=== PATIENT | female | born 1990 | race Asian ===

== ENCOUNTER 2019-09-25 03:44 | Emergency (ER) | payer SELFPAY ==
[~2019-09-25] VITALS: Ht 157.5 cm; Wt 47.2 kg
--- NOTE | 2019-09-25 04:20 | NUR ---
BIBMOTHER FROM HOME. TO ER BED 10. AAOX 4. NO RESP DISTRESS. AMBULATORY. C/O ABDOINAL PAIN. ACCORDING TO PT, SHE WENT DRINKING AND STARTED TO HAVE VOMMITING. PT REPORTS THAT SHE WENT TO AN URGENT CARE YESTERDAY GOT ZOFRAN BUT NOT WORKING. PT IS NOTED DRY HEEVING UPON RECEIVING. AND C/O NAUSEA AND ABDOMINAL PAIN RATE 8/10 SHARP. MD WAS AT BEDSIDE FOR EVAL. ORDERS RECEIVED NOTED AND CARRIED OUT. IV LINE OBTAINED ON THE R HAND 20G. BLOOD DRAWN AND SENT GIVEN TO INDUSTRY OPERATIONS INVESTIGATOR AT BEDSIDE.
[2019-09-25] MEDS ORDERED: PROCHLORPERAZINE EDISYLATE 10 MG/2 ML VIAL ONE (04:26)
[2019-09-25] MEDS ORDERED: IV NS 0.9% 1,000 ML BAG IV ONE (04:30)
[2019-09-25] MEDS ORDERED: PROCHLORPERAZINE EDISYLATE 10 MG/2 ML VIAL IVP ONE (04:30)
[2019-09-25 04:46] LABS: BASOPHILS % (AUTO) 0.2 % (0.0-2.0); HEMATOCRIT 45 % (33-45); HEMOGLOBIN 14.6 g/dL (11.5-14.8); LYMPHOCYTES # (AUTO) 1.1 /CMM (0.8-4.8); LYMPHOCYTES % (AUTO) 8.3 % (20.0-44.0); MEAN CORPUSCULAR HGB CONC 33 g/dl (31.0-36.0); MEAN CORPUSCULAR VOLUME 96 fL (82-100); MONOCYTES # (AUTO) 0.9 /CMM (0.1-1.30); MONOCYTES % (AUTO) 6.9 % (2.0-12.0); NEUTROPHILS # (AUTO) 10.7 /CMM (1.8-8.9); NEUTROPHILS % (AUTO) 84.6 % (43.0-81.0); PLATELET COUNT (AUTO) 133 /CMM (150-450); RED BLOOD CELL COUNT(AUTO) 4.67 MIL/uL (4.0-5.2); WHITE BLOOD COUNT (AUTO) 12.7 K/uL (4.3-11.0)
[2019-09-25 04:53] LABS: CALCIUM, SERUM 9.4 mg/dL (8.5-10.1); POTASSIUM 4.2 mmol/L (3.5-5.1)
[2019-09-25 05:00] LABS: BILIRUBIN,DIRECT 0.2 mg/dL (0.0-0.2); BILIRUBIN,TOTAL 1.2 mg/dL (0.2-1.0)
[2019-09-25] MEDS ORDERED: IV NS 0.9% 1,000 ML IV PRN (05:30)
[2019-09-25 06:19] LABS: CALCIUM, SERUM 8.3 mg/dL (8.5-10.1); CREATININE 0.8 mg/dL (0.6-1.3); POTASSIUM 3.8 mmol/L (3.5-5.1)
[2019-09-25] MEDS ORDERED: ONDANSETRON HCL/PF 4 MG/2 ML VIAL ONE (06:51)
--- NOTE | 2019-09-25 06:56 | NUR ---
PT STILL FEEL A LIITLE NAUSEOUS BUT NOT THE SAME ADRIANNA. MADE AWARE. AND RECEIVED ORDERS FOR ZOFRAN 4MG IV X 1. NOTED AND CARRIED OUT
[2019-09-25] MEDS ORDERED: ONDANSETRON HCL/PF - ER 4 MG/2 ML VIAL IV ONE (07:00)
--- NOTE | 2019-09-25 07:18 | NUR ---
Patient discharged to home in stable condition. Written and verbal after care instructions given. Patient verbalizes understanding of instruction.IV removed. Catheter intact and site benign. Pressure and 4x4 applied to site. No bleeding noted. Pt ambulatory with a steady gait
[2019-09-25 07:19] VITALS: BP 114/71
== END 2019-09-25 07:19 | disposition home or self-care (01) ==
LOC: ER 03:47
DX: K52.9 Noninfective gastroenteritis and colitis, unspecified (principal); Z98.890 Other specified postprocedural states; Z88.2 Allergy status to sulfonamides
CPT/HCPCS: 36415; 80048 ×2; 80076; 83690; 84703; 85025; 96361; 96374; 99283; J0780; J7030 ×2; J2405

== ENCOUNTER 2019-09-26 02:47 | Emergency (ER) | payer SELFPAY ==
[~2019-09-26] VITALS: Ht 165.1 cm; Wt 50.8 kg
[2019-09-26] MEDS ORDERED: ONDANSETRON HCL/PF 4 MG/2 ML VIAL IVP ONE (03:00)
[2019-09-26] MEDS ORDERED: IV NS 0.9% 1,000 ML BAG IV ONE (03:00)
[2019-09-26] MEDS ORDERED: diphenhydrAMINE HCL 50 MG/ML VIAL IV ONE (03:00)
--- NOTE | 2019-09-26 03:00 | NUR ---
BIB MOM FOR C/O ABD PAIN, N/V X 2 DAYS. PT ALSO PRESENTED W/ L JAW TIGHTNESS. PT WAS SEEN AT [facility] ER YESTERDAY AND GIVEN COMPAZINE FOR N/V.
[2019-09-26] MEDS ORDERED: diphenhydrAMINE HCL 50 MG/ML VIAL ONE (03:02)
[2019-09-26] MEDS ORDERED: ONDANSETRON HCL/PF 4 MG/2 ML VIAL ONE (03:02)
[2019-09-26 03:15] LABS: BASOPHILS % (AUTO) 0.2 % (0.0-2.0); HEMATOCRIT 43 % (33-45); HEMOGLOBIN 14.7 g/dL (11.5-14.8); LYMPHOCYTES # (AUTO) 1.4 /CMM (0.8-4.8); LYMPHOCYTES % (AUTO) 10.6 % (20.0-44.0); MEAN CORPUSCULAR HGB CONC 34 g/dl (31.0-36.0); MEAN CORPUSCULAR VOLUME 91 fL (82-100); MONOCYTES % (AUTO) 7.6 % (2.0-12.0); NEUTROPHILS # (AUTO) 10.7 /CMM (1.8-8.9); NEUTROPHILS % (AUTO) 81.6 % (43.0-81.0); PLATELET COUNT (AUTO) 164 /CMM (150-450); RED BLOOD CELL COUNT(AUTO) 4.72 MIL/uL (4.0-5.2); WHITE BLOOD COUNT (AUTO) 13.1 K/uL (4.3-11.0)
[2019-09-26 03:24] LABS: CALCIUM, SERUM 9.1 mg/dL (8.5-10.1); CREATININE 0.9 mg/dL (0.6-1.3); POTASSIUM 3.2 mmol/L (3.5-5.1)
[2019-09-26 03:29] LABS: BILIRUBIN,DIRECT 0.3 mg/dL (0.0-0.2); BILIRUBIN,TOTAL 1.8 mg/dL (0.2-1.0); TOTAL PROTEIN, SERUM 7.7 g/dL (6.4-8.2)
--- NOTE | 2019-09-26 03:39 | NUR ---
Malina clay in [facility] - 09/26/19 at 0340 by JUAN LUIS PELLET PRESS OPERATOR AT THE BED SIDE FOR TROP DRAW
[2019-09-26] MEDS ORDERED: KETOROLAC TROMETHAMINE INJ 30 MG/ML VIAL ONE (03:54)
[2019-09-26] MEDS ORDERED: KETOROLAC TROMETHAMINE INJ 30 MG/ML VIAL IV ONE (04:00)
[2019-09-26] MEDS ORDERED: CODEINE/PROMETHAZINE HCL 5 ML UDC ONE (04:24)
[2019-09-26] MEDS ORDERED: PROMETHAZINE HCL 25 MG TABLET PO SCH (04:30)
[2019-09-26] MEDS ORDERED: CODEINE/PROMETHAZINE HCL 5 ML UDC PO ONE (04:30)
[2019-09-26 05:12] VITALS: BP 114/64
--- NOTE | 2019-09-26 05:12 | NUR ---
DC IV removed. Catheter intact and site benign. Pressure and 4x4 applied to site. No bleeding noted.Patient discharged to home in stable condition. Rx and Written and verbal after care instructions given. Patient verbalizes understanding of instruction.
== END 2019-09-26 05:13 | disposition home or self-care (01) ==
LOC: ER 02:48
DX: N83.201 Unspecified ovarian cyst, right side (principal); R10.84 Generalized abdominal pain; R11.2 Nausea with vomiting, unspecified; F10.10 Alcohol abuse, uncomplicated; Y90.9 Presence of alcohol in blood, level not specified; Z98.890 Other specified postprocedural states; Z88.2 Allergy status to sulfonamides
CPT/HCPCS: 36415; 74176; 80048; 80076; 83690; 85025; 96361; 96374; 96375; 99284; J1200; J1885; J2405; J7030; Q0169

== ENCOUNTER 2020-02-12 23:17 | Emergency (ER) | payer BC ==
[~2020-02-12] VITALS: Ht 157.5 cm; Wt 46.3 kg
[2020-02-12] MEDS ORDERED: FAMOTIDINE/PF INJ 20 MG/2 ML VIAL IV ONE (23:39)
[2020-02-12] MEDS ORDERED: ONDANSETRON HCL/PF 4 MG/2 ML VIAL ONE (23:39)
--- NOTE | 2020-02-12 23:42 | NUR ---
BLOOD DRAWN AND SENT TO LAB FOR TESTING.
[2020-02-12 23:45] LABS: APPEARANCE,URINE Cloudy (CLEAR); BILIRUBIN,URINE SMALL (NEGATIVE); BLOOD, URINE Negative Ery/uL (NEGATIVE); COLOR,URINE Yellow (YELLOW); KETONES,URINE 40 (NEGATIVE); LEUKOCYTE ESTERASE ,URINE Negative (NEGATIVE); NITRITE, URINE Negative (NEGATIVE); PH,URINE 6.5 (5.0-8.0); PROTEIN,URINE 30 mg/dl (NEGATIVE); UGLUCOSE Negative (NEGATIVE); UROBILINOGEN,URINE 0.2 EU/dL (0.2)
[2020-02-12 23:50] LABS: BASOPHILS % (AUTO) 0.1 % (0.0-2.0); HEMATOCRIT 46 % (33-45); HEMOGLOBIN 15.7 g/dL (11.5-14.8); LYMPHOCYTES # (AUTO) 1.3 /CMM (0.8-4.8); LYMPHOCYTES % (AUTO) 12.7 % (20.0-44.0); MEAN CORPUSCULAR HGB CONC 34 g/dl (31.0-36.0); MEAN CORPUSCULAR VOLUME 90 fL (82-100); MONOCYTES # (AUTO) 0.8 /CMM (0.1-1.30); NEUTROPHILS # (AUTO) 8.4 /CMM (1.8-8.9); NEUTROPHILS % (AUTO) 79.2 % (43.0-81.0); PLATELET COUNT (AUTO) 176 /CMM (150-450); RED BLOOD CELL COUNT(AUTO) 5.09 MIL/uL (4.0-5.2); WHITE BLOOD COUNT (AUTO) 10.5 K/uL (4.3-11.0)
[2020-02-12 23:56] LABS: CALCIUM, SERUM 9.6 mg/dL (8.5-10.1); POTASSIUM 3.6 mmol/L (3.5-5.1)
--- NOTE | 2020-02-12 23:57 | NUR ---
PATIENT CAME TO ER BED 9 C/O NAUSEA AND VOMITING. PATIENT STATES THAT SHE HAD VOMITING AND NASUEA FOR THE PAST 2 DAYS. PATIENT STATES THAT SHE HAD SARDINES AND FELT SICK AFTER COMSUMPTION. CURRENTLY NO NAUSEA. AAOX4. NO SOB. BREATHING EVENLY AND UNLABORED. CONNECTED TO MONITOR. URINE IS COLLECTED AND SENT TO THE LAB.
[2020-02-13] MEDS ORDERED: ONDANSETRON HCL/PF 4 MG/2 ML VIAL IVP ONE
[2020-02-13] MEDS ORDERED: FAMOTIDINE/PF INJ 20 MG/2 ML VIAL IV ONE
[2020-02-13] MEDS ORDERED: IV NS 0.9% 1,000 ML BAG IV ONE
[2020-02-13 00:02] LABS: ALBUMIN 4.1 g/dL (3.4-5.0); BILIRUBIN,DIRECT 0.1 mg/dL (0.0-0.2); BILIRUBIN,TOTAL 0.5 mg/dL (0.2-1.0); TOTAL PROTEIN, SERUM 8.1 g/dL (6.4-8.2)
[2020-02-13 00:34] LABS: BACTERIA,URINE Many /HPF (None Seen); RBC,URINE 0-2 /HPF (0-2); SQUAMOUS EPITHELIAL CELL,UR Many /HPF (None Seen); WBC,URINE 0-2 /HPF (0-3)
[2020-02-13] MEDS ORDERED: MORPHINE SULFATE INJ 4 MG/ML DISP.SYRIN ONE (00:44)
[2020-02-13] MEDS ORDERED: MORPHINE SULFATE INJ 2 MG/ML DISP.SYRIN IV ONE (01:00)
--- NOTE | 2020-02-13 02:52 | NUR ---
IV removed. Catheter intact and site benign. Pressure and 4x4 applied to site. No bleeding noted.
--- NOTE | 2020-02-13 03:09 | NUR ---
Patient discharged to home in stable condition. Written and verbal after care instructions given. Patient verbalizes understanding of instruction.
[2020-02-13 03:10] VITALS: BP 118/77
== END 2020-02-13 03:10 | disposition home or self-care (01) ==
LOC: ER 23:17
DX: R10.84 Generalized abdominal pain (principal); R11.2 Nausea with vomiting, unspecified; R19.7 Diarrhea, unspecified; Z98.890 Other specified postprocedural states; Z88.2 Allergy status to sulfonamides
CPT/HCPCS: 36415; 80048; 80076; 81001; 83690; 84703; 85025; 96361; 96374; 96375 ×2; 99285; J2270; J2405; J3490; J7030 ×2; 81000-TC; 87086-TC

== ENCOUNTER 2021-03-31 22:29 | Inpatient (IN) | payer BC ==
[~2021-03-31] VITALS: Ht 157.5 cm; Wt 44.5 kg
--- NOTE | 2021-03-31 23:40 | NUR ---
PATIENT CAME TO ER BED 6 C/O NAUSEA AND VOMITING SINCE EARLIER TODAY. PATIENT STATES THAT SHE HAD DRANK SOME WINE, AND VODKA ALL DAY UNTIL TONIGHT. AAOX4. PATIENT IS BREATHING EVENLY AND UNLABORED ON ROOM AIR. CONNECTED TO THE MONITOR.
[2021-04-01] MEDS ORDERED: FAMOTIDINE/PF INJ 20 MG/2 ML VIAL IV ONE ×2 (00:44→01:00)
[2021-04-01] MEDS ORDERED: ONDANSETRON HCL/PF 4 MG/2 ML VIAL ONE (00:44)
[2021-04-01] MEDS ORDERED: MORPHINE SULFATE INJ 2 MG/ML DISP.SYRIN ONE (00:44)
--- NOTE | 2021-04-01 00:58 | NUR ---
RACECAR DRIVER AT BEDSIDE FOR BLOOD DRAW.
[2021-04-01] MEDS ORDERED: MORPHINE SULFATE INJ 2 MG/ML DISP.SYRIN IV ONE (01:00)
[2021-04-01] MEDS ORDERED: ONDANSETRON HCL/PF 4 MG/2 ML VIAL IVP ONE (01:00)
[2021-04-01] MEDS ORDERED: IV NS 0.9% 1,000 ML BAG IV ONE (01:00)
[2021-04-01 01:09] LABS: BASOPHILS % (AUTO) 0.2 % (0.0-2.0); HEMATOCRIT 40 % (33-45); HEMOGLOBIN 13.5 g/dL (11.5-14.8); LYMPHOCYTES # (AUTO) 1.1 /CMM (0.8-4.8); LYMPHOCYTES % (AUTO) 7.6 % (20.0-44.0); MEAN CORPUSCULAR HGB CONC 33 g/dl (31.0-36.0); MEAN CORPUSCULAR VOLUME 92 fL (82-100); MONOCYTES # (AUTO) 0.4 /CMM (0.1-1.30); MONOCYTES % (AUTO) 2.3 % (2.0-12.0); NEUTROPHILS # (AUTO) 13.5 /CMM (1.8-8.9); NEUTROPHILS % (AUTO) 89.9 % (43.0-81.0); PLATELET COUNT (AUTO) 185 /CMM (150-450); RED BLOOD CELL COUNT(AUTO) 4.42 MIL/uL (4.0-5.2)
[2021-04-01 01:34] LABS: CARBON DIOXIDE 19 mmol/L (21-32); CHLORIDE 104 mmol/L (98-107); CREATININE 0.7 mg/dL (0.6-1.3); GLUCOSE 101 mg/dL (74-106); SODIUM SERUM 139 mmol/L (136-145); UREA NITROGEN, BLOOD 15 mg/dL (7-18)
[2021-04-01 01:40] LABS: ALANINE AMINOTRANSFERASE 21 U/L (12-78); ALBUMIN 4.1 g/dL (3.4-5.0); ALKALINE PHOSPHATASE 59 U/L (46-116); ASPARTATE AMINOTRANSFERASE 26 U/L (15-37); BILIRUBIN,DIRECT 0.2 mg/dL (0.0-0.2); BILIRUBIN,TOTAL 0.8 mg/dL (0.2-1.0); LIPASE 74 U/L (73-393); TOTAL PROTEIN, SERUM 7.6 g/dL (6.4-8.2)
--- NOTE | 2021-04-01 01:59 | NUR ---
LACTIC 3.7
[2021-04-01] MEDS ORDERED: METOCLOPRAMIDE HCL 10 MG/2 ML VIAL IV ONE (02:00)
[2021-04-01] MEDS ORDERED: IOHEXOL-300 100 ML VIAL IV ONE (02:07)
[2021-04-01] MEDS ORDERED: CT SWABBABLE VALVE TRANS SET 1 EA INFUS.SET MC ONE (02:07)
--- NOTE | 2021-04-01 02:10 | NUR ---
PT TO CT
--- NOTE | 2021-04-01 02:23 | NUR ---
BROUGHT BACK FROM CT
[2021-04-01] MEDS ORDERED: METOCLOPRAMIDE HCL 10 MG/2 ML VIAL ONE (02:52)
--- NOTE | 2021-04-01 05:23 | NUR ---
PATIENT IS ASLEEP. CHEST RISING AND FALLING EVENLY. PATIENT IS EASILY AROUSABLE THROUGH VERBAL STIMULI. CONNECTED TO THE HYDRAULIC JACK ADJUSTER. PATIENT'S BED IN THE LOWEST POSITION. CALL LIGHT IS WITHIN HAND'S REACH. PATIENT WILL BE MONITOR CLOSELY.
[2021-04-01] MEDS ORDERED: HALOPERIDOL LACTATE INJ 5 MG/ML VIAL ONE (06:06)
[2021-04-01] MEDS ORDERED: HALOPERIDOL LACTATE INJ 5 MG/ML VIAL IM ONE (06:30)
--- NOTE | 2021-04-01 07:30 | NUR ---
received a call fromt he lab regarding covid 19 result "negative".
--- NOTE | 2021-04-01 09:12 | NUR ---
PATIENT A/OX4, STILL C/O NAUSEA AND PAIN. CLARISSA SINGH MADE AWARE AND REQUESTED FOR ADMISSION ORDERS.
--- NOTE | 2021-04-01 10:22 | NUR ---
room 322-2
[2021-04-01] MEDS ORDERED: METOCLOPRAMIDE HCL 10 MG/2 ML VIAL IV PRN (10:30)
[2021-04-01] MEDS ORDERED: MAG HYDROX/AL HYDROX/SIMETH 30 ML UDC PO PRN (10:30)
--- NOTE | 2021-04-01 11:22 | NUR ---
report given to Ladarius HOGAN for lyla
[2021-04-01 11:30] VITALS: BP 152/84
--- NOTE | 2021-04-01 11:30 | NUR ---
Pt transported to unit [place] with EMT at bedside on stable condition.
--- NOTE | 2021-04-01 11:31 | NUR ---
wheeled patient via gurney accompanied by EMT in no distress, RN assigned at bedside to assume care.
--- NOTE | 2021-04-01 11:35 | NUR ---
NURSE TRANSITIONAL NOTE RECEIVED PT IN 322-2 [facility]IA [place]. PT IS AWAKE. A/O X3 AND IRISH SPEAKING. COMPLAINT OF PAIN IN ABDOMEN 8/10 AND NAUSEA PRESENT. IVP MEDS GIVEN PER PROTOCOL. NO EDEMA PRESENT. SKIN IS INTACT. IV PRESENT IN L AC 22G. SAFETY MEASURES IN PLACE. SIDE RAILS RAISED. BED LOWERED. CALL LIGHT WITHIN REACH. WILL CONTINUE TO MONITOR.
[2021-04-01] MEDS: ONDANSETRON HCL/PF 4 MG/2 ML VIAL IVP PRN ×2 (11:41→18:20)
[2021-04-01] MEDS: MORPHINE SULFATE INJ 2 MG/ML DISP.SYRIN IV PRN ×2 (11:41→22:16)
--- NOTE | 2021-04-01 11:50 | NUR ---
RN NOTE PT PAIN IN ABDOMEN 8/10 AND NAUSEA PRESENT. IVP ZOFRAN AND MORPHINE GIVEN. WILL CONTINUE TO MONITOR.
--- NOTE | 2021-04-01 14:00 | NUR ---
MS RN NOTES RECEIVED REPORT AT THIS TIME FROM DEMETRI RN, PT RESTING COMFORTABLY, EASY TO AROUSE. AOX4. NO SOB NOTED, NO C//O OF PAIN AT THIS TIME, NO S/S OF ANY APPARENT DISTRESS NOTED. SKIN INTACT. IV ACCESS NOTED IN LAC G#20, INTACT, PATENT AND FLUSHING WELL. ASPIRATION AND SAFETY PRECAUTIONS IN PLACE AND MAINTAINED AT ALL TIMES. BED IN LOWEST LOCKED POSITION, SIDE RAILS UPX2, TABLE AND CALL LIGHT WITHIN REACH. WILL CONTINUE WITH PLAN OF CARE
--- NOTE | 2021-04-01 14:01 | NUR ---
RN NOTE GAVE REPORT TO IMMACULATE FOR KARLA.
[2021-04-01] MEDS: IV NS 0.9% 1,000 ML IV PRN (15:03)
--- NOTE | 2021-04-01 15:22 | NUR ---
RECEIVED ORDERS AT THIS TIME TO ADVANCE PT'SDIET FROM NPO TO CLEAR LIQUIDS TOLERATED PER JOHNIE ROMO. ORDERS READ BACK AND CARRIED OUT, WILL CONTINUE TO MONITOR
[2021-04-01 16:00] VITALS: BP 116/56
--- NOTE | 2021-04-01 18:15 | NUR ---
SURAJ AMARO ([phone]),PT'S MOTHER CALLED AND WAS UPDATED ON PT'S STATUS PER PT REQUEST. WILL CONTINUE TO MONITOR
--- NOTE | 2021-04-01 18:20 | NUR ---
PT C/O OF NAUSEA AT THIS TIME. VS BP 116/56, HR 65, RR 17, T 97.9, SPO2 100% ON RA. PER PT REQUEST ZOFRAN 4MG IVP Q6H PRN FOR N/V ADMINISTERED AT THIS TIME PER ORDER. WILL CONTINUE TO MONITOR
--- NOTE | 2021-04-01 18:37 | NUR ---
CARTON MARKER MACHINE CLOSING NOTES PT AWAKE IN BED AT THIS TIME. PT REMAINED STABLE THROUGHOUT SHIFT. ALL CARE, NEEDS, MEDICATION AND TREATMENT ADMINISTERED ANTICIPATED PER ORDER. NAUSEA CONTROL ADMINISTERED PER ORDER. SAFETY PRECAUTIONS IN PLACE AND MAINTAINED AT ALL TIMES. BED IN LOWEST LOCKED POSITION, HOB ELEVATED, SIDE RAILS UP X 2. CALL LIGHT AND TABLE WITHIN REACH. WILL ENDORSE TO OIL WELL GUN PERFORATOR OPERATOR NURSE FOR KARLA
--- NOTE | 2021-04-01 19:38 | NUR ---
POSTMASTER NOTES PT ASLEEP IN BED AT THIS TIME. NO RESPIRATORY DISTRESS OR PAIN NOTED AT THIS TIME. ALL NURSING NEEDS MET. SAFETY PRECAUTIONS IN PLACE AND MAINTAINED AT ALL TIMES. BED IN LOWEST LOCKED POSITION, HOB ELEVATED, SIDE RAILS UP X 2. CALL LIGHT AND TABLE WITHIN REACH. WILL CONTINUE TO MONITOR.
[2021-04-01 20:00] VITALS: BP_SYST 143; BP_SYST 150; BP_DIAS 57; BP_DIAS 88
[2021-04-02] MEDS: IV NS 0.9% 1,000 ML IV PRN (04:33)
[2021-04-02] MEDS: ONDANSETRON HCL/PF 4 MG/2 ML VIAL IVP PRN ×2 (05:19→08:51)
[2021-04-02] MEDS: LORAZEPAM INJ 2 MG/ML VIAL IV PRN ×3 (05:26→19:44)
[2021-04-02] MEDS ORDERED: LORAZEPAM INJ 2 MG/ML VIAL IV PRN (05:30)
[2021-04-02 06:44] LABS: BASOPHILS # (AUTO) 0.1 /CMM (0.0-0.2); BASOPHILS % (AUTO) 0.5 % (0.0-2.0); EOSINOPHILS % (AUTO) 0.1 % (0.0-6.0); HEMATOCRIT 39 % (33-45); HEMOGLOBIN 13.1 g/dL (11.5-14.8); LYMPHOCYTES # (AUTO) 2.5 /CMM (0.8-4.8); LYMPHOCYTES % (AUTO) 23.2 % (20.0-44.0); MEAN CORPUSCULAR HGB CONC 34 g/dl (31.0-36.0); MEAN CORPUSCULAR VOLUME 92 fL (82-100); MONOCYTES # (AUTO) 1.3 /CMM (0.1-1.30); MONOCYTES % (AUTO) 12.5 % (2.0-12.0); NEUTROPHILS # (AUTO) 6.7 /CMM (1.8-8.9); NEUTROPHILS % (AUTO) 63.7 % (43.0-81.0); PLATELET COUNT (AUTO) 171 /CMM (150-450); RED BLOOD CELL COUNT(AUTO) 4.25 MIL/uL (4.0-5.2); WHITE BLOOD COUNT (AUTO) 10.6 K/uL (4.3-11.0)
--- NOTE | 2021-04-02 06:53 | NUR ---
MS RN NOTES PT ASLEEP AT THIS TIME. NO RESPIRATORY DISTRESS NOTED NO PAIN OR DISCOMFORT NOTED OR REPORTED AT THIS TIME. PT ON ROOM AIR TOLERATING WELL. ALL NURSING NEEDS. ALL DUE MEDS GIVEN AND TOLERATED WELL. PT HAS NS RUINING AT 75 ML//HR. PT EXPERIENCED NAUSEA DURING VEHICLE WASHER ATIVAN GIVEN PT NO LONGER EXPERIENCING NAUSEA WILL ENDORSE TO DAY SHIFT NURSE. ALL SAFETY PRECAUTIONS FOLLOWED. CALL LIGHT WITHIN REACH. WILL ENDORSE CARE TO DAY SHIFT NURSE.
[2021-04-02 07:30] LABS: CALCIUM, SERUM 8.3 mg/dL (8.5-10.1); CREATININE 0.8 mg/dL (0.6-1.3); MAGNESIUM 1.9 mg/dL (1.8-2.4); POTASSIUM 3.8 mmol/L (3.5-5.1)
[2021-04-02 08:00] VITALS: BP 124/82
--- NOTE | 2021-04-02 08:00 | NUR ---
RN OPENING NOTE A/O X3 AND COOK ISLANDER SPEAKING. NO COMPLAINT OF PAIN. NAUSEA PRESENT. IVP MEDS GIVEN PER PROTOCOL. CURRENTLY ON RA WITH NO SOB OR RESPIRATORY DISTRESS PRESENT. NO EDEMA PRESENT. SKIN IS INTACT. PT IS SELF AMBULATORY WITH BATHROOM PRIVILEGES. IV PRESENT IN L AC 22G. SAFETY MEASURES IN PLACE. SIDE RAILS RAISED. BED LOWERED. CALL LIGHT WITHIN REACH. WILL CONTINUE TO MONITOR.
[2021-04-02] MEDS: PANTOPRAZOLE 40 MG VIAL IV SCH (08:51)
[2021-04-02 16:00] VITALS: BP 142/83
--- NOTE | 2021-04-02 18:11 | NUR ---
RN CLOSING NOTE PT AWAKE IN BED AND RESTING. A/O X3 AND TAIWANESE SPEAKING. NO COMPLAINT OF PAIN. NO NAUSEA PRESENT. CURRENTLY ON RA WITH NO SOB OR RESPIRATORY DISTRESS PRESENT. NO EDEMA PRESENT. SKIN IS INTACT. PT IS SELF AMBULATORY WITH BATHROOM PRIVILEGES. IV PRESENT IN L AC 22G. SAFETY MEASURES IN PLACE. SIDE RAILS RAISED. BED LOWERED. CALL LIGHT WITHIN REACH. REPORT TO BE GIVEN TO NIGHT NURSE FOR KARLA.
--- NOTE | 2021-04-02 19:36 | NUR ---
MS RN OPENING PATIENT IN BED. A/OX4. NO C/O PAIN AT THE MOMENT. NO S/S OF DISTRESS. ASKING FOR ATIVAN. SAFETY IN PLACE: BED IN LOWEST, LOCKED POSITION; CALL LIGHT WITHIN REACH. WILL CONTINUE TO MONITOR.
--- NOTE | 2021-04-02 19:40 | NUR ---
MS RN NOTE PATIENT ASKED FOR ATIVAN WHEN WE WERE DOING KARLA REPORT. REPORTING IT HELPS WITH HER LOCKED JAW. GIVEN ATIVAN O.5 ML. WILL CONTINUE TO MONITOR.
[2021-04-02 20:00] VITALS: BP 109/72
[2021-04-02 20:07] VITALS: BP 109/72
--- NOTE | 2021-04-02 20:50 | NUR ---
MS RN NOTES PATIENT C/O NAUSEA AND 8/10 ABDOMINAL PAIN. GIVEN REGLAN AND MORPHINE PRN.
[2021-04-02] MEDS: MORPHINE SULFATE INJ 2 MG/ML DISP.SYRIN IV PRN (20:51)
[2021-04-03 00:15] VITALS: BP 109/72
[2021-04-03] MEDS: LORAZEPAM INJ 2 MG/ML VIAL IV PRN ×2 (02:17→09:41)
--- NOTE | 2021-04-03 02:34 | NUR ---
MS RN NOTES PATIENT ASKED FOR ATIVAN. FEELING NAUSEOUS. GIVEN ATIVAN 0.5 ML PRN. ALSO, PATIENT C/O PAIN ON THE IV SITE. DC'd LEFT AC IV LINE AND INSERTED A NEW ONE ON THE R. FA #[id number]. WILL CONTINUE TO MONITOR.
[2021-04-03 06:02] LABS: BASOPHILS # (AUTO) 0.1 /CMM (0.0-0.2); BASOPHILS % (AUTO) 0.7 % (0.0-2.0); EOSINOPHILS % (AUTO) 0.3 % (0.0-6.0); HEMATOCRIT 38 % (33-45); HEMOGLOBIN 12.5 g/dL (11.5-14.8); LYMPHOCYTES # (AUTO) 2.6 /CMM (0.8-4.8); MEAN CORPUSCULAR HGB CONC 33 g/dl (31.0-36.0); MEAN CORPUSCULAR VOLUME 92 fL (82-100); MONOCYTES # (AUTO) 0.9 /CMM (0.1-1.30); MONOCYTES % (AUTO) 12.1 % (2.0-12.0); NEUTROPHILS # (AUTO) 3.8 /CMM (1.8-8.9); NEUTROPHILS % (AUTO) 51.9 % (43.0-81.0); PLATELET COUNT (AUTO) 146 /CMM (150-450); RED BLOOD CELL COUNT(AUTO) 4.09 MIL/uL (4.0-5.2); WHITE BLOOD COUNT (AUTO) 7.3 K/uL (4.3-11.0)
[2021-04-03 06:09] LABS: CALCIUM, SERUM 8.3 mg/dL (8.5-10.1); CREATININE 0.8 mg/dL (0.6-1.3); MAGNESIUM 1.9 mg/dL (1.8-2.4); PHOSPHORUS 2.1 mg/dL (2.5-4.9); POTASSIUM 3.4 mmol/L (3.5-5.1)
--- NOTE | 2021-04-03 06:46 | NUR ---
MS RN CLOSING PATIENT IN BED. A/OX4. NO S/S OF DISTRESS. PAIN AND NAUSEA MANAGED WITH MEDICATIONS. PATIENT ABLE TO MAKE NEEDS KNOWN. ALL NEEDS ATTENDED. SAFETY KEPT IN PLACE THE WHOLE SHIFT: BED IN LOWEST, LOCKED POSITION. CALL LIGHT WITHIN REACH. WILL ENDORSE CARE TO MORNING RN.
--- NOTE | 2021-04-03 07:30 | NUR ---
MS RN OPENING NOTES ALERT AND ORIENTED X4. NO COMPLAINT OF PAIN. NO SIGNS OR SYMPTOMS OF DISTRESS NOTED. MEDICATIONS GIVEN ORDERED CURRENTLY ON RA. NO EDEMA PRESENT. SKIN IS INTACT. PT IS SELF AMBULATORY WITH BATHROOM PRIVILEGES. IV PRESENT IN L AC 22G. SAFETY MEASURES IN PLACE. SIDE RAILS RAISED. BED LOWERED. CALL LIGHT WITHIN REACH. WILL CONTINUE TO MONITOR.
[2021-04-03] MEDS: PANTOPRAZOLE 40 MG VIAL IV SCH (08:56)
[2021-04-03] MEDS ORDERED: POTASSIUM CHLORIDE 20 MEQ POWDER PACKET PO SCH (10:00)
[2021-04-03] MEDS ORDERED: PANT40TA2 PO (10:46)
[2021-04-03] MEDS ORDERED: K PHOS NEUTRAL 250 MG TABLET PO ONE (11:00)
--- NOTE | 2021-04-03 13:43 | NUR ---
SUPERVISOR SPINNING NOTE RECEIVED DISCHARGE ORDER. PATIENT IS ALERT AND ORIENTED X 4. PATIENT IS ON ROOM AIR, BREATHING IS EVEN AND UNLABORED, NO SIGNS OF DISTRESS OR SHORTNESS OF BREATH NOTED. NO COMPLAINTS OF PAIN AT THIS TIME. PATIENT ABLE TO MAKE NEEDS KNOWN. PATIENT WAS GIVEN DISCHARGE INSTRUCTIONS BOTH VERBALLY AND WRITTEN. BELONGINGS AND CHECKLIST WERE REVIEWED WITH PATIENT. ID BAND AND IV ACCESS WAS REMOVED. SKIN IS INTACT. PATIENT WAS PICKED UP BY FAMILY MEMBER IN PRIVATE CAR IN STABLE CONDITION.
== END 2021-04-03 13:40 | disposition home or self-care (01) | DRG 392 ==
LOC: ER 22:32 → TRANSITION 04-01 09:23 → MED 04-01 10:43
PROVIDERS: ADMIT Registered Nurse; ATTEND Nurse Practitioner Acute Care
DX: K29.20 Alcoholic gastritis without bleeding (principal); E87.2 Acidosis; F10.188 Alcohol abuse with other alcohol-induced disorder; E44.1 Mild protein-calorie malnutrition; Z68.1 Body mass index [BMI] 19.9 or less, adult; K21.00 Gastro-esophageal reflux disease with esophagitis, without bleeding; Y90.9 Presence of alcohol in blood, level not specified; E86.0 Dehydration; E86.1 Hypovolemia; Z20.822 Contact with and (suspected) exposure to COVID-19; Z98.82 Breast implant status
CPT/HCPCS: 36415; 76705-TC; 80048-TC; 80076-TC; 83605-TC; 83690-TC; 83735-TC; 84100-TC; 84702-TC; 85025-TC; 87081-TC; C9113; C9803; G0378; J1630; J2060; J2270; J2405; J2765; J3490; J7030; Q9967

== ENCOUNTER 2021-07-02 11:11 | Emergency (ER) | payer BC ==
[~2021-07-02] VITALS: Ht 157.5 cm; Wt 46.3 kg
[~2021-07-02 11:11] MED LIST: PANT40TA2 PO
--- NOTE | 2021-07-02 11:15 | NUR ---
AAOX3, CAME TO ER C/O ABDOMINAL PAIN, NAUSEA AND VOMITING X 2 DAYS. RR IS EVEN AND UNLABORED WITH NAD NOTED. SKIN IS WARM AND NON DIAPHORETIC. AWAITING MD FOR EVAL.
--- NOTE | 2021-07-02 11:35 | NUR ---
DR HAYNES AT FOR EVAL.
[2021-07-02] MEDS ORDERED: ONDANSETRON HCL/PF 4 MG/2 ML VIAL ONE ×2 (11:38→12:20)
[2021-07-02 11:54] LABS: BASOPHILS % (AUTO) 0.3 % (0.0-2.0); HEMATOCRIT 44 % (33-45); HEMOGLOBIN 15.3 g/dL (11.5-14.8); LYMPHOCYTES # (AUTO) 1.1 K/uL (0.8-4.8); LYMPHOCYTES % (AUTO) 9.7 % (20.0-44.0); MEAN CORPUSCULAR HGB CONC 35 g/dl (31.0-36.0); MEAN CORPUSCULAR VOLUME 93 fL (82-100); MONOCYTES # (AUTO) 0.9 K/uL (0.1-1.30); MONOCYTES % (AUTO) 8.5 % (2.0-12.0); NEUTROPHILS # (AUTO) 8.9 K/uL (1.8-8.9); NEUTROPHILS % (AUTO) 81.5 % (43.0-81.0); PLATELET COUNT (AUTO) 201 K/uL (150-450)
[2021-07-02] MEDS ORDERED: IV NS 0.9% 1,000 ML BAG IV ONE (12:00)
[2021-07-02] MEDS ORDERED: ONDANSETRON HCL/PF 4 MG/2 ML VIAL IVP ONE (12:00)
--- NOTE | 2021-07-02 12:09 | NUR ---
URINE COLLECTED AND SENT TO LAB
[2021-07-02 12:19] LABS: CALCIUM, SERUM 9.3 mg/dL (8.5-10.1); CREATININE 0.9 mg/dL (0.6-1.3)
[2021-07-02 12:25] LABS: ALBUMIN 4.5 g/dL (3.4-5.0); BILIRUBIN,DIRECT 0.4 mg/dL (0.0-0.2); BILIRUBIN,TOTAL 1.9 mg/dL (0.2-1.0); TOTAL PROTEIN, SERUM 8.6 g/dL (6.4-8.2)
[2021-07-02] MEDS ORDERED: ONDANSETRON HCL/PF 4 MG/2 ML VIAL IV ONE (12:30)
--- NOTE | 2021-07-02 12:38 | NUR ---
PT VERBALIZED EPIGASTRIC PAIN SHARP BURNING. MD MADE AWARE. AWAITING ORDERS
[2021-07-02] MEDS ORDERED: MORPHINE SULFATE INJ 2 MG/ML DISP.SYRIN ONE (12:39)
--- NOTE | 2021-07-02 12:55 | NUR ---
US AT BEDSIDE
[2021-07-02] MEDS ORDERED: MORPHINE SULFATE INJ 2 MG/ML DISP.SYRIN IV ONE (13:00)
[2021-07-02] MEDS ORDERED: ONDA4TAB5 PO (13:08)
[2021-07-02 13:17] VITALS: BP 124/71
[2021-07-02 14:00] LABS: BILIRUBIN,URINE SMALL (NEGATIVE); COLOR,URINE YELLOW (YELLOW); LEUKOCYTE ESTERASE ,URINE NEGATIVE (NEGATIVE); NITRITE, URINE NEGATIVE (NEGATIVE); PH,URINE 6.5 (5.0-8.0); PROTEIN,URINE 30 mg/dl (NEGATIVE); UGLUCOSE NEGATIVE (NEGATIVE); UROBILINOGEN,URINE 0.2 EU/dL (0.2)
[2021-07-02 14:05] LABS: RBC,URINE 0-2 /HPF (0-2); WBC,URINE 0-2 /HPF (0-3)
[2021-07-02 14:06] LABS: BACTERIA,URINE Moderate /HPF (None Seen); SQUAMOUS EPITHELIAL CELL,UR Many /HPF (None Seen)
== END 2021-07-02 13:18 | disposition home or self-care (01) ==
LOC: ER 11:11
DX: R10.84 Generalized abdominal pain (principal); R11.10 Vomiting, unspecified; Z98.890 Other specified postprocedural states; Z88.2 Allergy status to sulfonamides; Z79.899 Other long term (current) drug therapy
CPT/HCPCS: 36415; 76700; 80048; 80076; 81001; 83690; 84703; 85025; 87086; 96361; 96374; 96375; 96376; 99284; J2270; J2405 ×2; J7030

== ENCOUNTER 2021-07-03 04:12 | Emergency (ER) | payer BC ==
[~2021-07-03] VITALS: Ht 157.5 cm; Wt 46.3 kg
[~2021-07-03 04:12] MED LIST changes: +ONDA4TAB5 PO
--- NOTE | 2021-07-03 04:25 | NUR ---
PT BIBRA 99 FROM HOME FOR C/O ABDOMINAL PAIN, NAUSEA AND VOMITING. WAS SEEN AT [facility] ER YESTERDAY. PT ALERT AND ORIENTED X4. AMBULATORY WITH NON LABORED BREATHING.
[2021-07-03] MEDS ORDERED: ONDANSETRON HCL/PF 4 MG/2 ML VIAL ONE ×2 (04:30→05:20)
[2021-07-03] MEDS ORDERED: FAMOTIDINE/PF INJ 20 MG/2 ML VIAL IV ONE ×2 (04:30→04:44)
[2021-07-03] MEDS ORDERED: IV NS 0.9% 1,000 ML BAG IV ONE (04:30)
[2021-07-03] MEDS ORDERED: ONDANSETRON HCL/PF 4 MG/2 ML VIAL IVP ONE (04:30)
--- NOTE | 2021-07-03 04:30 | NUR ---
AUTOMOTIVE PARTS SALESPERSON @ BEDSIDE.
[2021-07-03 04:47] LABS: BASOPHILS # (AUTO) 0.2 K/uL (0.0-0.2); BASOPHILS % (AUTO) 1.5 % (0.0-2.0); EOSINOPHILS % (AUTO) 0.4 % (0.0-6.0); HEMATOCRIT 45 % (33-45); HEMOGLOBIN 15.6 g/dL (11.5-14.8); LYMPHOCYTES # (AUTO) 0.9 K/uL (0.8-4.8); LYMPHOCYTES % (AUTO) 8.3 % (20.0-44.0); MEAN CORPUSCULAR HGB CONC 35 g/dl (31.0-36.0); MEAN CORPUSCULAR VOLUME 91 fL (82-100); MONOCYTES # (AUTO) 0.6 K/uL (0.1-1.30); MONOCYTES % (AUTO) 5.5 % (2.0-12.0); NEUTROPHILS # (AUTO) 8.8 K/uL (1.8-8.9); NEUTROPHILS % (AUTO) 84.3 % (43.0-81.0); PLATELET COUNT (AUTO) 186 K/uL (150-450); RED BLOOD CELL COUNT(AUTO) 4.96 MIL/uL (4.0-5.2); WHITE BLOOD COUNT (AUTO) 10.5 K/uL (4.3-11.0)
[2021-07-03] MEDS ORDERED: MORPHINE SULFATE INJ 2 MG/ML DISP.SYRIN ONE (04:50)
[2021-07-03 04:57] LABS: CALCIUM, SERUM 9.5 mg/dL (8.5-10.1); CREATININE 0.9 mg/dL (0.6-1.3); POTASSIUM 3.7 mmol/L (3.5-5.1)
[2021-07-03] MEDS ORDERED: MORPHINE SULFATE INJ 2 MG/ML DISP.SYRIN IM ONE (05:00)
[2021-07-03] MEDS ORDERED: KETOROLAC TROMETHAMINE INJ 30 MG/ML VIAL IV ONE (05:00)
[2021-07-03 05:03] LABS: ALBUMIN 4.4 g/dL (3.4-5.0); BILIRUBIN,DIRECT 0.3 mg/dL (0.0-0.2); BILIRUBIN,TOTAL 1.8 mg/dL (0.2-1.0); TOTAL PROTEIN, SERUM 8.4 g/dL (6.4-8.2)
[2021-07-03] MEDS ORDERED: ONDANSETRON HCL/PF - ER 4 MG/2 ML VIAL IV ONE (05:30)
--- NOTE | 2021-07-03 05:46 | NUR ---
Patient discharged to home in stable condition. Written and verbal after care instructions given. Patient verbalizes understanding of instruction.
[2021-07-03 05:47] VITALS: BP 120/70
[2021-07-03 05:54] LABS: LYMPHOCYTES % (MANUAL) 9 % (16-48); MONOCYTES % (MANUAL) 2 % (0-11.0); NEUTROPHILS % (MANUAL) 89 (42-76)
== END 2021-07-03 05:47 | disposition home or self-care (01) ==
LOC: ER 04:13
DX: R11.15 Cyclical vomiting syndrome unrelated to migraine (principal); F10.10 Alcohol abuse, uncomplicated; Y90.0 Blood alcohol level of less than 20 mg/100 ml; Z79.899 Other long term (current) drug therapy; Z98.890 Other specified postprocedural states; Z88.2 Allergy status to sulfonamides
CPT/HCPCS: 36415; 80048; 80076; 80320; 83690; 85007; 85025; 96361; 96372; 96374; 96375; 96376; 99284; J2270; J2405 ×3; J3490; J7030; G0480

== ENCOUNTER 2021-10-07 06:35 | Emergency (ER) | payer BC ==
[~2021-10-07] VITALS: Ht 157.5 cm; Wt 44.0 kg
[2021-10-07] MEDS ORDERED: ONDANSETRON HCL/PF 4 MG/2 ML VIAL ONE (06:52)
--- NOTE | 2021-10-07 06:57 | NUR ---
BIBS FOR C/O N/V AND ABD PAIN X 3 DAYS. PATIENT ALERT AND ORIENTED X3. AMBULATORY WITH NON LABORED BREATHING. PLACED IN BED 03 ON A MONITOR AND COMFORTABLE.
--- NOTE | 2021-10-07 06:57 | NUR ---
BLOOD COLLECTED AND SENT TO LAB
[2021-10-07] MEDS ORDERED: IV NS 0.9% 1,000 ML BAG IV ONE (07:00)
[2021-10-07] MEDS ORDERED: ONDANSETRON HCL/PF 4 MG/2 ML VIAL IVP ONE (07:00)
[2021-10-07] MEDS ORDERED: MORPHINE SULFATE INJ 2 MG/ML DISP.SYRIN ONE (07:13)
[2021-10-07] MEDS ORDERED: MORPHINE SULFATE INJ 2 MG/ML DISP.SYRIN IV ONE (07:30)
[2021-10-07 07:48] LABS: BASOPHILS % (AUTO) 0.2 % (0.0-2.0); HEMATOCRIT 44 % (33-45); HEMOGLOBIN 15.4 g/dL (11.5-14.8); LYMPHOCYTES # (AUTO) 1.4 K/uL (0.8-4.8); MEAN CORPUSCULAR HGB CONC 35 g/dl (31.0-36.0); MEAN CORPUSCULAR VOLUME 91 fL (82-100); NEUTROPHILS # (AUTO) 6.3 K/uL (1.8-8.9); NEUTROPHILS % (AUTO) 72.8 % (43.0-81.0); PLATELET COUNT (AUTO) 199 K/uL (150-450); RED BLOOD CELL COUNT(AUTO) 4.87 MIL/uL (4.0-5.2); WHITE BLOOD COUNT (AUTO) 8.7 K/uL (4.3-11.0)
--- NOTE | 2021-10-07 07:53 | NUR ---
THE PATIENT IS RECEIVED IN ER BED #3. ALERT AND ORIENTED X4. RESPIRATION REGULAR AND UNLABORED. WILL CONTINUE TO MONITOR THE PATIENT.
[2021-10-07 08:32] LABS: CREATININE 0.8 mg/dL (0.6-1.3); POTASSIUM 3.6 mmol/L (3.5-5.1)
[2021-10-07 08:38] LABS: ALBUMIN 4.2 g/dL (3.4-5.0); BILIRUBIN,DIRECT 0.4 mg/dL (0.0-0.2); BILIRUBIN,TOTAL 1.8 mg/dL (0.2-1.0); TOTAL PROTEIN, SERUM 8.1 g/dL (6.4-8.2)
[2021-10-07] MEDS ORDERED: ONDA4TAB5 PO (08:47)
[2021-10-07 08:52] LABS: BILIRUBIN,URINE SMALL (NEGATIVE); COLOR,URINE YELLOW (YELLOW); LEUKOCYTE ESTERASE ,URINE NEGATIVE (NEGATIVE); NITRITE, URINE NEGATIVE (NEGATIVE); PROTEIN,URINE TRACE mg/dl (NEGATIVE); UGLUCOSE NEGATIVE (NEGATIVE)
--- NOTE | 2021-10-07 09:18 | NUR ---
IV removed. Catheter intact and site benign. Pressure and 4x4 applied to site. No bleeding noted.Patient discharged to home in stable condition. Written and verbal after care instructions given. Patient verbalizes understanding of instruction.
[2021-10-07 09:19] VITALS: BP 134/63
[2021-10-07 09:54] LABS: BACTERIA,URINE Moderate /HPF (None Seen); RBC,URINE 0-2 /HPF (0-2); WBC,URINE 0-2 /HPF (0-3)
[2021-10-07 09:55] LABS: SQUAMOUS EPITHELIAL CELL,UR Few /HPF (None Seen)
== END 2021-10-07 09:19 | disposition home or self-care (01) ==
LOC: ER 06:37
DX: R11.15 Cyclical vomiting syndrome unrelated to migraine (principal); R10.9 Unspecified abdominal pain; Z98.890 Other specified postprocedural states; Z88.2 Allergy status to sulfonamides; Z79.899 Other long term (current) drug therapy
CPT/HCPCS: 36415; 80048; 80076; 81001; 83690; 84703; 85025; 87086; 96361; 96374; 96375; 99284; J2270; J2405; J7030

== ENCOUNTER 2022-12-07 07:41 | Emergency (ER) | payer BC, OTHER ==
[~2022-12-07] VITALS: Ht 157.5 cm; Wt 46.3 kg
[2022-12-07] MEDS ORDERED: ONDANSETRON 4 MG TAB.RAPDIS ONE (08:29)
[2022-12-07] MEDS ORDERED: ONDANSETRON 4 MG TAB.RAPDIS SL ONE (08:30)
[2022-12-07] MEDS ORDERED: LIDOCAINE VISCOUS 2% UD 15 ML UDC MM ONE (08:30)
[2022-12-07] MEDS ORDERED: MORPHINE SULFATE INJ 2 MG/ML DISP.SYRIN IV ONE (08:30)
[2022-12-07] MEDS ORDERED: ONDANSETRON HCL/PF 4 MG/2 ML VIAL IVP ONE (08:30)
[2022-12-07] MEDS ORDERED: MAG HYDROX/AL HYDROX/SIMETH 30 ML UDC PO ONE (08:30)
[2022-12-07] MEDS ORDERED: IV NS 0.9% 1,000 ML BAG IV ONE (08:30)
[2022-12-07] MEDS ORDERED: PANTOPRAZOLE 40 MG VIAL IV ONE (08:30)
[2022-12-07] MEDS ORDERED: PANTOPRAZOLE 40 MG VIAL ONE (08:31)
[2022-12-07] MEDS ORDERED: MAG HYDROX/AL HYDROX/SIMETH 30 ML UDC ONE (08:31)
[2022-12-07] MEDS ORDERED: LIDOCAINE VISCOUS 2% UD 15 ML UDC ONE (08:31)
[2022-12-07] MEDS ORDERED: ONDANSETRON HCL/PF 4 MG/2 ML VIAL ONE (08:31)
[2022-12-07] MEDS ORDERED: MORPHINE SULFATE INJ 2 MG/ML DISP.SYRIN ONE (08:31)
--- NOTE | 2022-12-07 08:40 | NUR ---
PHLEB AT BEDSIDE FOR BLOOD COLLECTION
--- NOTE | 2022-12-07 08:40 | NUR ---
PT UNABLE TO PROVIDE URINE AT THIS TIME; SPECIMEN CUP GIVEN TO PT
--- NOTE | 2022-12-07 08:44 | NUR ---
RIGHT AC 20G ESTABLISH, PATENT. LAB DRAWN, IV MEDS GIVEN, 1L NS BOLUS INITIATED.
[2022-12-07 08:48] LABS: BASOPHILS % (AUTO) 0.1 % (0.0-2.0); HEMATOCRIT 49 % (33-45); LYMPHOCYTES # (AUTO) 1.4 K/uL (0.8-4.8); LYMPHOCYTES % (AUTO) 9.1 % (20.0-44.0); MEAN CORPUSCULAR HGB CONC 33 g/dl (31.0-36.0); MEAN CORPUSCULAR VOLUME 91 fL (82-100); MONOCYTES # (AUTO) 1.6 K/uL (0.1-1.30); MONOCYTES % (AUTO) 10.4 % (2.0-12.0); NEUTROPHILS # (AUTO) 12.5 K/uL (1.8-8.9); NEUTROPHILS % (AUTO) 80.4 % (43.0-81.0); PLATELET COUNT (AUTO) 227 K/uL (150-450); RED BLOOD CELL COUNT(AUTO) 5.31 MIL/uL (4.0-5.2); WHITE BLOOD COUNT (AUTO) 15.6 K/uL (4.3-11.0)
[2022-12-07 08:55] LABS: CALCIUM, SERUM 10.7 mg/dL (8.5-10.1); CREATININE 1.5 mg/dL (0.6-1.3)
[2022-12-07 09:20] LABS: ALBUMIN 5.1 g/dL (3.4-5.0); BILIRUBIN,DIRECT 0.3 mg/dL (0.0-0.2); BILIRUBIN,TOTAL 2.2 mg/dL (0.2-1.0); TOTAL PROTEIN, SERUM 10.1 g/dL (6.4-8.2)
[2022-12-07] MEDS ORDERED: IV NS 0.9% 1,000 ML IV ONE (09:30)
--- NOTE | 2022-12-07 09:33 | NUR ---
PT RESTING W/ EYES CLOSED, ABLE TO BE AWAKENED. NO COMPLAINT OF NAUSEA AT THIS TIME.
[2022-12-07 10:57] LABS: CALCIUM, SERUM 10.4 mg/dL (8.5-10.1); CREATININE 1.5 mg/dL (0.6-1.3); POTASSIUM 4.1 mmol/L (3.5-5.1)
[2022-12-07] MEDS ORDERED: ONDA4TAB11 PO (11:37)
[2022-12-07 11:44] VITALS: BP 132/81
== END 2022-12-07 11:45 | disposition home or self-care (01) ==
LOC: ER 07:45
DX: R10.84 Generalized abdominal pain (principal); R11.2 Nausea with vomiting, unspecified; Z88.2 Allergy status to sulfonamides; Z60.2 Problems related to living alone; Z79.899 Other long term (current) drug therapy
CPT/HCPCS: 99284; 96374; 96361; 96375; 85025; 80048 ×2; 83690; 80076; 84703; 36415; 84702; J2405; J7030 ×2; C9113; Q0162; J2270

== ENCOUNTER 2023-11-17 01:36 | Emergency (ER) | payer SELFPAY ==
[~2023-11-17] VITALS: Ht 157.5 cm; Wt 44.5 kg
[~2023-11-17 01:36] MED LIST changes: +ONDA4TAB11 PO
[2023-11-17] MEDS ORDERED: KETOROLAC TROMETHAMINE 15 MG/ML VIAL ONE (02:26)
[2023-11-17] MEDS ORDERED: FAMOTIDINE/PF INJ 20 MG/2 ML VIAL IV ONE ×2 (02:26→02:30)
[2023-11-17] MEDS ORDERED: ONDANSETRON HCL/PF 4 MG/2 ML VIAL ONE (02:26)
[2023-11-17] MEDS ORDERED: KETOROLAC TROMETHAMINE 15 MG/ML VIAL IV ONE (02:30)
[2023-11-17] MEDS ORDERED: ONDANSETRON HCL/PF 4 MG/2 ML VIAL IVP ONE (02:30)
[2023-11-17] MEDS ORDERED: IV NS 0.9% 1,000 ML BAG IV ONE (02:30)
[2023-11-17 03:12] LABS: BASOPHILS % (AUTO) 0.5 % (0.0-2.0); EOSINOPHILS % (AUTO) 0.1 % (0.0-6.0); HEMATOCRIT 43 % (33-45); HEMOGLOBIN 14.5 g/dL (11.5-14.8); LYMPHOCYTES # (AUTO) 1.3 K/uL (0.8-4.8); LYMPHOCYTES % (AUTO) 16.7 % (20.0-44.0); MEAN CORPUSCULAR HEMOGLOBIN 30 PG (26.0-33.0); MEAN CORPUSCULAR HGB CONC 34 g/dl (31.0-36.0); MEAN CORPUSCULAR VOLUME 89 fL (82-100); MONOCYTES # (AUTO) 0.7 K/uL (0.1-1.30); MONOCYTES % (AUTO) 9.9 % (2.0-12.0); NEUTROPHILS # (AUTO) 5.5 K/uL (1.8-8.9); NEUTROPHILS % (AUTO) 72.8 % (43.0-81.0); PLATELET COUNT (AUTO) 163 K/uL (150-450); RED BLOOD CELL COUNT(AUTO) 4.84 MIL/uL (4.0-5.2); RED CELL DISTRIBUTION WIDTH 12.9 % (11.5-15.0); WHITE BLOOD COUNT (AUTO) 7.5 K/uL (4.3-11.0)
[2023-11-17] MEDS ORDERED: HALOPERIDOL LACTATE INJ 5 MG/ML VIAL ONE (03:16)
[2023-11-17 03:18] LABS: CALCIUM, SERUM 9.3 mg/dL (8.5-10.1); CREATININE 0.8 mg/dL (0.6-1.3); POTASSIUM 3.4 mmol/L (3.5-5.1)
[2023-11-17 03:24] LABS: ALBUMIN 4.1 g/dL (3.4-5.0); BILIRUBIN,DIRECT 0.1 mg/dL (0.0-0.2); BILIRUBIN,TOTAL 0.6 mg/dL (0.2-1.0); TOTAL PROTEIN, SERUM 8.4 g/dL (6.4-8.2)
[2023-11-17] MEDS ORDERED: HALOPERIDOL LACTATE INJ 5 MG/ML VIAL IV ONE (03:30)
[2023-11-17] MEDS ORDERED: ONDA4TAB5 PO (03:56)
[2023-11-17 04:08] VITALS: BP 114/60; TEMP 97.6; O2SAT 100
== END 2023-11-17 04:08 | disposition home or self-care (01) ==
LOC: ER 01:40
DX: R11.2 Nausea with vomiting, unspecified (principal); R10.2 Pelvic and perineal pain; Z88.2 Allergy status to sulfonamides
CPT/HCPCS: 99284; 96374; 96375; 96361; 85025; 80048; 83690; 80076; 36415; 84702; J1630; J3490; J2405; J7030; J1885

== ENCOUNTER 2024-08-21 18:42 | Emergency (ER) | payer SELFPAY ==
[~2024-08-21] VITALS: Ht 157.5 cm; Wt 45.4 kg
[2024-08-21] MEDS ORDERED: FAMOTIDINE/PF INJ 20 MG/2 ML VIAL IV ONE (19:08)
[2024-08-21] MEDS ORDERED: ONDANSETRON HCL/PF 4 MG/2 ML VIAL ONE (19:08)
[2024-08-21] MEDS: FAMOTIDINE/PF INJ 20 MG/2 ML VIAL IV ONE (19:15)
[2024-08-21] MEDS: IV NS 0.9% 1,000 ML BAG IV ONE (19:24)
[2024-08-21] MEDS: ONDANSETRON HCL/PF 4 MG/2 ML VIAL IVP ONE (19:25)
[2024-08-21 19:35] LABS: BASOPHILS % (AUTO) 0.2 % (0.0-2.0); HEMATOCRIT 44 % (33-45); HEMOGLOBIN 14.4 g/dL (11.5-14.8); LYMPHOCYTES # (AUTO) 1.3 K/uL (0.8-4.8); LYMPHOCYTES % (AUTO) 5.3 % (20.0-44.0); MEAN CORPUSCULAR HEMOGLOBIN 30 PG (26.0-33.0); MEAN CORPUSCULAR HGB CONC 33 g/dl (31.0-36.0); MEAN CORPUSCULAR VOLUME 90 fL (82-100); MONOCYTES # (AUTO) 0.9 K/uL (0.1-1.30); MONOCYTES % (AUTO) 3.7 % (2.0-12.0); NEUTROPHILS % (AUTO) 90.8 % (43.0-81.0); PLATELET COUNT (AUTO) 199 K/uL (150-450); RED BLOOD CELL COUNT(AUTO) 4.87 MIL/uL (4.0-5.2); RED CELL DISTRIBUTION WIDTH 12.8 % (11.5-15.0); WHITE BLOOD COUNT (AUTO) 24.2 K/uL (4.3-11.0)
[2024-08-21 19:55] LABS: CALCIUM, SERUM 9.5 mg/dL (8.5-10.1); CREATININE 0.7 mg/dL (0.6-1.3); POTASSIUM 3.8 mmol/L (3.5-5.1)
[2024-08-21 20:01] LABS: ALBUMIN 4.4 g/dL (3.4-5.0); BILIRUBIN,DIRECT 0.2 mg/dL (0.0-0.2); BILIRUBIN,TOTAL 0.9 mg/dL (0.2-1.0); TOTAL PROTEIN, SERUM 8.5 g/dL (6.4-8.2)
[2024-08-21] MEDS ORDERED: HALOPERIDOL LACTATE INJ 5 MG/ML VIAL ONE (20:07)
[2024-08-21] MEDS ORDERED: diphenhydrAMINE HCL 50 MG/ML VIAL ONE (20:07)
[2024-08-21] MEDS: diphenhydrAMINE HCL 50 MG/ML VIAL IV ONE (20:08)
[2024-08-21] MEDS: HALOPERIDOL LACTATE INJ 5 MG/ML VIAL IV ONE (20:08)
[2024-08-21 21:47] LABS: ANISOCYTOSIS 1+; LYMPHOCYTES % (MANUAL) 9 % (16-48); MONOCYTES % (MANUAL) 2 % (0-11.0); NEUTROPHILS % (MANUAL) 89 (42-76); PLATELET ESTIMATE ADEQUATE; ROULEAUX 1+
[2024-08-21 22:33] LABS: APPEARANCE,URINE CLEAR (CLEAR); BILIRUBIN,URINE NEGATIVE (NEGATIVE); BLOOD, URINE 1+ Ery/uL (NEGATIVE); COLOR,URINE YELLOW (YELLOW); KETONES,URINE 1+ mg/dL (NEGATIVE); LEUKOCYTE ESTERASE ,URINE NEGATIVE (NEGATIVE); NITRITE, URINE NEGATIVE (NEGATIVE); PROTEIN,URINE TRACE mg/dl (NEGATIVE); UGLUCOSE NEGATIVE (NEGATIVE); UROBILINOGEN,URINE 0.2 EU/dL (0.2)
[2024-08-21 23:17] VITALS: BP 111/70; TEMP 98; O2SAT 100
[2024-08-22 00:07] LABS: ADD URINE CULTURE NO; BACTERIA,URINE 1+ /HPF (None Seen); MUCUS,URINE Few /LPF (None Seen)
== END 2024-08-21 23:17 | disposition home or self-care (01) ==
LOC: ER 18:42
DX: R11.15 Cyclical vomiting syndrome unrelated to migraine (principal); R10.2 Pelvic and perineal pain; Z79.899 Other long term (current) drug therapy; Z87.11 Personal history of peptic ulcer disease; Z60.2 Problems related to living alone; Z88.2 Allergy status to sulfonamides
CPT/HCPCS: 99285; 74176; 96374; 96375; 96361; 85025; 80048; 87086; 83690; 80076; 81001; 36415; 84702; 85007; J1200; J1630; J3490; J2405; J7030

== ENCOUNTER 2025-02-12 10:59 | Inpatient (IN) | payer BC ==
[~2025-02-12] VITALS: Ht 157.5 cm; Wt 45.8 kg
[2025-02-12] MEDS: IV NS 0.9% 1,000 ML BAG IV ONE ×2 (11:42→16:45)
[2025-02-12 11:49] LABS: BASOPHILS % (AUTO) 0.1 % (0.0-2.0); EOSINOPHILS % (AUTO) 0.1 % (0.0-6.0); HEMATOCRIT 47 % (33-45); HEMOGLOBIN 15.6 g/dL (11.5-14.8); LYMPHOCYTES # (AUTO) 0.8 K/uL (0.8-4.8); LYMPHOCYTES % (AUTO) 3.9 % (20.0-44.0); MEAN CORPUSCULAR HEMOGLOBIN 30 PG (26.0-33.0); MEAN CORPUSCULAR HGB CONC 33 g/dl (31.0-36.0); MEAN CORPUSCULAR VOLUME 90 fL (82-100); MONOCYTES # (AUTO) 0.9 K/uL (0.1-1.30); MONOCYTES % (AUTO) 4.8 % (2.0-12.0); NEUTROPHILS # (AUTO) 17.6 K/uL (1.8-8.9); NEUTROPHILS % (AUTO) 91.1 % (43.0-81.0); PLATELET COUNT (AUTO) 220 K/uL (150-450); RED BLOOD CELL COUNT(AUTO) 5.21 MIL/uL (4.0-5.2); RED CELL DISTRIBUTION WIDTH 13.9 % (11.5-15.0); WHITE BLOOD COUNT (AUTO) 19.3 K/uL (4.3-11.0)
[2025-02-12] MEDS ORDERED: FAMOTIDINE/PF INJ 20 MG/2 ML VIAL IV ONE (11:59)
[2025-02-12] MEDS ORDERED: HALOPERIDOL LACTATE INJ 5 MG/ML VIAL ONE (11:59)
[2025-02-12] MEDS: HALOPERIDOL LACTATE INJ 5 MG/ML VIAL IV ONE ×2 (12:00→13:44)
[2025-02-12] MEDS: FAMOTIDINE/PF INJ 20 MG/2 ML VIAL IV ONE (12:00)
[2025-02-12 12:04] LABS: CALCIUM, SERUM 10.7 mg/dL (8.5-10.1); POTASSIUM 3.9 mmol/L (3.5-5.1)
[2025-02-12 12:10] LABS: BILIRUBIN,TOTAL 1.6 mg/dL (0.2-1.0); TOTAL PROTEIN, SERUM 9.3 g/dL (6.4-8.2)
[2025-02-12] MEDS ORDERED: LORAZEPAM INJ 2 MG/ML VIAL ONE (12:16)
[2025-02-12] MEDS ORDERED: diphenhydrAMINE HCL 50 MG/ML VIAL ONE ×2 (12:29→13:44)
[2025-02-12] MEDS ORDERED: LORAZEPAM INJ 2 MG/ML VIAL IM ONE (12:30)
[2025-02-12] MEDS: diphenhydrAMINE HCL 50 MG/ML VIAL IV ONE ×2 (12:35→13:48)
[2025-02-12 13:00] LABS: APPEARANCE,URINE CLEAR (CLEAR); BILIRUBIN,URINE 1+ (NEGATIVE); BLOOD, URINE NEGATIVE Ery/uL (NEGATIVE); COLOR,URINE YELLOW (YELLOW); KETONES,URINE 3+ mg/dL (NEGATIVE); LEUKOCYTE ESTERASE ,URINE NEGATIVE (NEGATIVE); NITRITE, URINE NEGATIVE (NEGATIVE); PROTEIN,URINE 1+ mg/dl (NEGATIVE); UGLUCOSE NEGATIVE (NEGATIVE); UROBILINOGEN,URINE 0.2 EU/dL (0.2)
[2025-02-12 13:38] LABS: BACTERIA,URINE Many /HPF (None Seen); SQUAMOUS EPITHELIAL CELL,UR Many /HPF (None Seen)
[2025-02-12 13:40] LABS: ADD URINE CULTURE YES
[2025-02-12] MEDS ORDERED: ONDANSETRON HCL/PF 4 MG/2 ML VIAL ONE (16:36)
[2025-02-12] MEDS: ONDANSETRON HCL/PF 4 MG/2 ML VIAL IVP ONE (16:45)
[2025-02-12 19:00] VITALS: BP 119/66; TEMP 98.6; O2SAT 99
[2025-02-12] MEDS ORDERED: Z GUARD REMEDY 4 OZ OINT TP PRN (20:00)
[2025-02-12] MEDS ORDERED: MAGNESIUM HYDROXIDE 30 ML UDC PO PRN (20:00)
[2025-02-12] MEDS ORDERED: ACETAMINOPHEN 325 MG TABLET PO PRN (20:00)
[2025-02-12] MEDS ORDERED: METOCLOPRAMIDE HCL 10 MG/2 ML VIAL IV PRN (20:00)
[2025-02-12] MEDS ORDERED: MAG HYDROX/AL HYDROX/SIMETH 30 ML UDC PO PRN (20:00)
[2025-02-12] MEDS ORDERED: ONDANSETRON HCL/PF 4 MG/2 ML VIAL IVP PRN (20:00)
[2025-02-12] MEDS: IV LR 1000 ML 1,000 ML IV SCH (21:37)
[2025-02-13] MEDS ORDERED: IV LR 1000 ML 1,000 ML IV PRN (06:12)
[2025-02-13 06:40] LABS: BASOPHILS % (AUTO) 0.1 % (0.0-2.0); HEMATOCRIT 38 % (33-45); HEMOGLOBIN 12.9 g/dL (11.5-14.8); LYMPHOCYTES # (AUTO) 1.1 K/uL (0.8-4.8); LYMPHOCYTES % (AUTO) 7.6 % (20.0-44.0); MEAN CORPUSCULAR HEMOGLOBIN 30 PG (26.0-33.0); MEAN CORPUSCULAR HGB CONC 34 g/dl (31.0-36.0); MEAN CORPUSCULAR VOLUME 89 fL (82-100); MONOCYTES # (AUTO) 1.1 K/uL (0.1-1.30); MONOCYTES % (AUTO) 7.5 % (2.0-12.0); NEUTROPHILS # (AUTO) 12.2 K/uL (1.8-8.9); NEUTROPHILS % (AUTO) 84.8 % (43.0-81.0); PLATELET COUNT (AUTO) 191 K/uL (150-450); RED BLOOD CELL COUNT(AUTO) 4.28 MIL/uL (4.0-5.2); RED CELL DISTRIBUTION WIDTH 13.3 % (11.5-15.0); WHITE BLOOD COUNT (AUTO) 14.3 K/uL (4.3-11.0)
[2025-02-13 06:45] LABS: CREATININE 0.7 mg/dL (0.6-1.3)
[2025-02-13 06:46] LABS: MAGNESIUM 1.8 mg/dL (1.8-2.4); PHOSPHORUS 2.9 mg/dL (2.5-4.9)
[2025-02-13] MEDS ORDERED: PANTOPRAZOLE 40 MG VIAL IV SCH (09:00)
== END 2025-02-13 06:10 | disposition left against medical advice (07) | DRG 395 ==
LOC: ER 10:59 → MED 20:54
DX: R11.15 Cyclical vomiting syndrome unrelated to migraine (principal); F12.10 Cannabis abuse, uncomplicated; Z88.2 Allergy status to sulfonamides; D72.829 Elevated white blood cell count, unspecified; R10.84 Generalized abdominal pain; Z87.11 Personal history of peptic ulcer disease; Z53.29 Procedure and treatment not carried out because of patient's decision for other reasons
CPT/HCPCS: 36415; 80048-TC; 80053-TC; 81001; 83690-TC; 83735-TC; 84100-TC; 84484-TC; 85025-TC; A4223; G0378; J1200; J1308; J1630; J2060; J2405; J7030; J7120